=== PATIENT | female | born 1995 | race Two or more races ===

== ENCOUNTER 2025-06-25 20:18 | Inpatient (IN) | payer BC, SELFPAY ==
[2025-06-25] VITALS (54 sets, daily range): BP systolic 0–156; BP diastolic 0–107; PULSE 82–120; RESP 18–99; TEMP 36.6–36.9; O2SAT 93–100; BMI 23.2
[2025-06-25 21:46] LABS: Basophils # (Auto) 0.0 Thou/mm3 (0.0-0.2); Basophils % (Auto) 0 % (0-2.5); Eosinophils # (Auto) 0.0 Thou/mm3 (0.0-0.5); Eosinophils % (Auto) 0 % (0-10); Hematocrit 38.9 % (36.0-46.0); Hemoglobin 13.1 g/dL (12.0-16.0); Immature Granulocytes Auto 0.06 Thou/mm3 (0.00-0.00); Lymphocytes # (Auto) 2.9 Thou/mm3 (1.0-4.8); Lymphocytes % (Auto) 30 % (10-50); Mean Corpuscular HGB Conc 33.7 g/dl (31.0-37.0); Mean Corpuscular Hemoglobin 33.6 pg (25.0-35.0); Mean Corpuscular Volume 100 fL (80-100); Monocytes # (Auto) 0.6 Thou/mm3 (0.0-0.8); Monocytes % (Auto) 6 % (0-12); Neutrophils # (Auto) 6.1 Thou/mm3 (1.8-7.7); Neutrophils % (Auto) 63 % (37-80); Nucleated Red Blood Cell # 0.00 Thou/mm3 (0.00-0.00); Nucleated Red Blood Cell % 0 /100 WBC (0); Platelet Count 219 Thou/mm3 (140-440); RDW Standard Deviation 46.5 fL (36.4-46.3); Red Blood Count 3.90 Miln/mm3 (4.00-5.20); White Blood Count 9.7 Thou/mm3 (3.6-11.0)
[2025-06-25] MEDS: fentaNYL CIT INJ 50 mCg/ML AMP 2ML 100 MCG IVP (21:49)
--- NOTE | 2025-06-25 22:20 | PD.LDHP ---
Documentation for date of: 06/25/25 OB Labor/Induct. HPI History of Present Illness Chief complaint: Contractions : 2 Para: 1 Term pregnancies: 1 pregnancies: 0 Living children: 1 History of Abortions: Spontaneous and Elective: 0 History of Vaginal deliveries: 1 History of sections: No History of : No Date of last menstrual period: 09/24/24 EVELIO: 07/01/25 Gestational Age (weeks): 39 Gestational Age (days): 1 Gestational age based on last menstrual period: 39 History of present illness: Patient is a 29-year-old -0-0-1 with all care uncomplicated with Dr. Mckeon who presented to labor and delivery in active labor at 39 1/7 sevenths weeks. She was 3 to 4 cm dilated on presentation. She desires epidural. Group B strep is negative. History of Present Dating criteria: LMP confirmed by 1st trimester US Adequate Care: Yes Ultrasounds: normal mid trimester US Obstetrical complications: none Medical complications: none Labs Maternal Blood Type: AB Pos Labs: Positive: Rubella Titre, Negative: RPR, Hepatitis B, HIV, Chlamydia, Gonorrhea and Group Beta Strep and Unknown: Herpes Type 1, Herpes Type 2 and Covid-19 Past Medical History Surgical History SURGICAL: Negative Section Meds Home Medications and Allergies Home Medications ?Medication ?Instructions ?Recorded ?Confirmed ?Type vit no.95-ferrous 1 tab PO QDAY 08/08/23 08/08/23 History fumarate 28 mg-folic acid 800 mcg tablet () Allergies Allergy/AdvReac Type Severity Reaction Status Date / Time No Known Allergies Allergy Verified 06/25/25 20:46 OB Exam Physical Exam Vital signs: Pulse Resp BP Pulse Ox 96 18 128/80 98 06/25/25 22:17 06/25/25 21:05 06/25/25 22:17 06/25/25 22:16 Detailed Labor and Delivery Exam Dilation (cm): 3 Effacement (%): 90 Cervix position: mid station: -1 Consistency: soft Presentation: Vertex Membranes: intact Baseline heart rate: 140 monitor accelerations: 15x15 monitor decelerations: None Contraction frequency (min): 2 Contraction duration (sec): 45 Contraction intensity: Strong OB Results Labs 06/25/25 21:25 Labs: Short CBC 08/13/25 Range/Units 21:25 WBC 9.7 (3.6-11.0) Thou/mm3 Hgb 13.1 (12.0-16.0) g/dL Hct 38.9 (36.0-46.0) % Plt Count 219 (140-440) Thou/mm3 OB Assessment & Plan Assessment and Plan (1) Supervision of high risk in third trimester: Status: Acute Additional Plan Induction method: none Plan: anticipate NVD Additional Plan Comment: Patient with history of vacuum-assisted vaginal delivery last delivery.
[2025-06-25 22:32] LABS: Syphilis Nonreactive (Nonreactive)
[2025-06-25] MEDS: LIDOCAINE HCL 1% 20 ML VIAL INFL (23:00)
[2025-06-25] MEDS: OXYTOCIN in NS 20 units 20 UNIT/1,000 ML BAG 125 UNIT IV (23:00)
[2025-06-26] VITALS (21 sets, daily range): BP systolic 102–124; BP diastolic 57–73; PULSE 65–97; RESP 15–18; TEMP 36.4–37; O2SAT 91–98
[2025-06-26] MEDS: BENZO/LANO/ALOE (Dermoplast) 60 GM CAN 1 SPRAY TOP (00:36)
[2025-06-26] MEDS: OXYTOCIN INJ 10 UNIT/ML VIAL IM (00:40)
--- NOTE | 2025-06-26 00:56 | OBDSUM_ITS ---
Data ([facility]) Data Hx Section: No Maternal Blood Type: AB Pos Rubella Titre: Positive RPR: Non-reactive Labs: Negative: RPR, Hepatitis B, HIV, Chlamydia, Gonorrhea and Group Beta Strep : 2 Term: 1 : 0 Livin Abortions: Spontaneous & Theraputic: 0 Delivery Data ([facility]) Labor Data Initiation of labor: Spontaneous Induction/Augmentation Agent: None ROM date: 06/25/25 ROM time: 22:40 Amniotic membrane rupture type: Spontaneous Amniotic fluid description: Clear Delivery Data EDC: 07/01/25 EDC calculated by:: LMP/early US confirmation Date of arrival to unit: 06/25/25 Onset of labor date: 06/25/25 Onset of labor time: 16:00 Complete dilation date: 06/25/25 Complete dilation time: 22:50 delivery date: 06/25/25 delivery time: 22:57 Gestational age (weeks): 39 Gestational age (days): 1 Placenta delivery date: 06/25/25 Placenta delivery time: 23:03 Stage 1 total time: Labor - Stage 1 Duration 6 hours and 50 minutes Delivered by: [facility] ([facility]) Delivery nurse: Stefanie Eppersonorn nurse: Yajaira VIEIRA Privacy Director at delivery: No Support person(s) at delivery: spouse Other staff at delivery: Sol VIEIRAstreet supervisor Method Delivery method: Normal Vaginal Delivery Presentation: Vertex position: OA Anesthesia Type Anesthesia Type: Local and Epidural Delivery Room Medications Delivery room medications: Lidocaine (local) and Pitocin 20 u IV Placenta Placenta delivery description: Spontaneous Cord blood sent to lab: Yes cord blood collection: Cord Blood Type Episiotomy Episiotomy description: None Lacerations #1: Perineal: 1st degree Perineal repair Sutures used for repair: 3.0 Chromic EBL Estimated blood loss (ml): 75 Umbilical Cord cord description: 3 Vessels Additional Procedures Patient is a 29-year-old -0-0-1 history of vacuum-assisted vaginal delivery about 2 years ago. That was an 8 pound baby. She was delivered by Dr Mckeon. All care is up-to-date in the chart this with Dr Mckeon. She presented to labor delivery in active labor 4 cm. She had labs drawn and epidural placed and the patient patient rapidly went on to progress to complete approximately an hour and a half after admission and pushed a total of 7 minutes delivering a liveborn male at 2257. Findings liveborn male in the BENJI presentation with no nuchal cord and no meconium .Apgars were 8 and 9 weight was 7 pounds 10 ounces or 3460 g. Baby was vigorous and placed on mother's chest at . Delayed cord clamping was performed for about 1 to 2 minutes. The infant was then the umbilical cord was then cut. The placenta was complete spontaneous grossly normal cord blood was sent. The patient sustained a very small first-degree perineal laceration repaired in standard fashion using 3-0 chromic. EBL was 75 cc. Complications were none. Condition: Both mom and were in stable condition the delivery room. Complications Complications: None Quinn Data ([facility]) Quinn Data order: 1 Quinn's gender: Male Identification band number: [id number] weight (gms): 3460 g Weight (pounds): 7 lbs and 10.0 ozs length: 48.9 cm 1 minute: 8 5 minutes: 9
[2025-06-26 06:34] LABS: Basophils # (Auto) 0.0 Thou/mm3 (0.0-0.2); Basophils % (Auto) 0 % (0-2.5); Eosinophils # (Auto) 0.0 Thou/mm3 (0.0-0.5); Eosinophils % (Auto) 0 % (0-10); Hematocrit 35.5 % (36.0-46.0); Hemoglobin 11.9 g/dL (12.0-16.0); Immature Granulocytes Auto 0.10 Thou/mm3 (0.00-0.00); Lymphocytes # (Auto) 1.8 Thou/mm3 (1.0-4.8); Lymphocytes % (Auto) 12 % (10-50); Mean Corpuscular HGB Conc 33.5 g/dl (31.0-37.0); Mean Corpuscular Hemoglobin 33.6 pg (25.0-35.0); Mean Corpuscular Volume 100 fL (80-100); Monocytes # (Auto) 0.9 Thou/mm3 (0.0-0.8); Monocytes % (Auto) 6 % (0-12); Neutrophils # (Auto) 12.3 Thou/mm3 (1.8-7.7); Neutrophils % (Auto) 81 % (37-80); Nucleated Red Blood Cell # 0.00 Thou/mm3 (0.00-0.00); Nucleated Red Blood Cell % 0 /100 WBC (0); Platelet Count 206 Thou/mm3 (140-440); RDW Standard Deviation 47.0 fL (36.4-46.3); Red Blood Count 3.54 Miln/mm3 (4.00-5.20); White Blood Count 15.1 Thou/mm3 (3.6-11.0)
[2025-06-26] MEDS: DOCUSATE SOD 100 MG CAPSULE PO ×2 (08:41→20:37)
[2025-06-27 03:45] VITALS: BP 106/67; PULSE 71; RESP 16; TEMP 36.4; O2SAT 99
[2025-06-27 08:01] VITALS: BP 109/74; PULSE 82; RESP 16; TEMP 36.6; O2SAT 97
[2025-06-27] MEDS: DOCUSATE SOD 100 MG CAPSULE PO (08:28)
--- NOTE | 2025-06-27 11:15 | ESDS_ITS ---
DS: Providers Provider Date of admission: 06/25/25 21:05 Primary care physician: Physician No Primary/Family Admitting Provider: Isabel [facility]os MD ([facility]) Attending Provider on Admission: Bobby Palma MD Consults: 06/25/25 23:25 Referral Routine Comment: Attending Provider on DC: Karla Hoover MD Discharging Provider: Karla Hoover MD DS: Diagnosis Discharge Diagnosis (1) care and examination immediately after delivery: Status: Acute (2) Supervision of high risk in third trimester: Status: Acute Problem List Completed Was Problem List Reviewed/Reconciled?: Yes Summary/Hosp Course Brief History: Patient is a 29-year-old -0-0-1 with all care uncomplicated with Dr. Mckeon who presented to labor and delivery in active labor at 39 1/7 sevenths weeks. She was 3 to 4 cm dilated on presentation. She desires epidural. Group B strep is negative. She is doing well on PPD 1 s/p uncomplicated , delivering on 06/26/25. She has had an uncomplicated course, meeting all milestones and feels ready for discharge home. She is ambulating without lightheadedness, tolerating regular diet no n/v, spontaneously voiding without issue. She has no chest pain or shortness of breath. No fevers or chills. Minimal, appropriate discomfort. Vitals normal, benign exam. Hemodynamically stable with no evidence of infection. PP Hgb 11.9. Peripartum Data Delivery Method: Normal Vaginal Delivery Episiotomy Description: None Status at Discharge Functional status at discharge: independent ambulation Overall status at discharge: patient is back to baseline Time Spent with Patient Time attestation: Total time spent providing and/or coordinating discharge services: Exam Vital Signs Temp Pulse Resp BP Pulse Ox O2 Del Method 97.8 F 82 16 109/74 97 Room Air 06/27/25 08:01 06/27/25 08:01 06/27/25 08:01 06/27/25 08:01 06/27/25 08:01 06/27/25 08:01 Narrative Exam General: well developed, well nourished, no acute distress, conversant Cardiac: normal heart rate Lungs: breathing without distress Abdomen: soft, post-gravid, non-tender, no rebound or guarding, Fundus firm at u-3cm. Extremities: no pain with palpation of calves, trace edema of BLE Discharge Plan Plan Patient Disposition: HOME (Self Care) Patient condition on transfer: Stable Prescriptions/Referrals Prescriptions/Med Rec: New docusate sodium 100 mg Capsule 100 mg PO BID 10 Days Qty: 20 0RF ibuprofen 600 mg tablet 600 mg PO Q6H PRN (Reason: See Comments) 10 Days Qty: 20 0RF Continued PNV no.95-ferrous fumarate-FA [] 28 mg iron- 800 mcg tablet 1 tab PO QDAY Patient Comments: TAKE 1 TABLET BY MOUTH EVERY DAY No Action ferrous sulfate 325 mg (65 mg iron) tablet 325 mg PO .qod Patient Comments: TAKE 1 TABLET BY MOUTH EVERY OTHER DAY Referrals: No Primary/Family,Physician [Primary Care Provider] - Patient/Caregiver Discharge Instructions Discharge Activity: activity as tolerated and other Other Discharge Activity Instructions:: vaginal rest and no heavy lifting more than 10 pounds for 6 weeks Other Discharge Diet Instructions: regular Education Materials: After a Vaginal , : Caring for Yourself, Change Expect Parents Print Language: Armenian Activity Restrictions/Additional Instructions: PLEASE FOLLOW UP FOR A CHECK UP in 2 to 4 weeks, call clinic for appointment Stand Alone Forms: [facility] Award Info., Patient Portal Info Letter Discharge Order Discharge Orders: Discharge (Routine); Ordered 06/27/25 Ordered By: Karla Hoover Planned Discharge Date 06/27/25
== END 2025-06-27 12:32 | disposition home or self-care (01) | DRG 807 ==
LOC: S4SX 23:08 → S4NX 06-26 02:30
PROVIDERS: Admitting Provider Obstetrics & Gynecology; Visit Provider Obstetrics & Gynecology
DX: O70.0 First degree perineal laceration during delivery (principal); Z37.0 Single live birth; Z3A.39 39 weeks gestation of pregnancy
CPT/HCPCS: 36415; 59409; 85025; 86780; 86850; 86900; 86901; 94762; J2590; J2795; J3010; J3490; A9270